=== PATIENT | female | born 1995 | race Caucasian/White ===

== ENCOUNTER 2019-10-22 13:05 | Emergency (ER) | payer BC, MEDICAID, SELFPAY ==
[2019-10-22 13:21] VITALS: BP 150/95; PULSE 108; RESP 18; TEMP 36.7; O2SAT 98
--- NOTE | 2019-10-22 13:22 | ED.EYEPROB ---
HPI - Eye Problem General Chief complaint: Eye Problems Stated complaint: Possible pink eye Time Seen by Provider: 10/22/19 13:22 Source: patient, family and RN notes reviewed History of Present Illness HPI Narrative: Patient is a 24-year-old female that presents the urgent care with her parents with complaints of possible right pinkeye. Mother states that for the last 2 days it has been increasingly red with yellow thick drainage. Mother states that she believes this worsened over the last 24 hours. Denies of any other acute complaints. No acute distress noted. Parents aware of the plan of care. Related Data Allergies Allergy/AdvReac Type Severity Reaction Status Date / Time Penicillins Allergy Mild Hives Verified 10/22/19 13:29 Review of Systems Review of Systems: Narrative: ROS completed with the parents. Difficult to report due to patient's mental capacity CONSTITUTIONAL: Denies fever, chills, or sweats. EYES: Reports of redness and discharge from the right eye ENT: Denies rhinorrhea, congestion, sore throat, or otalgia. CARDIOVASCULAR: Denies chest pain, palpitations, or edema. RESPIRATORY: Denies cough or dyspnea. GASTROINTESTINAL: Denies abdominal pain, nausea, vomiting, or diarrhea. GENITOURINARY: Denies dysuria or hematuria. SKIN: Denies rash or itching. MUSCULOSKELETAL: Denies back pain, joint pain, or myalgia. All other systems reviewed are negative, except as documented in HPI. PMFSH Comments At the time of my signature, I reviewed and agree with the nursing past medical, surgical, social, and family history. There is no relevant family history pertinent to the patient complaint. Exam Narrative: Exam Narrative: GENERAL: This is a well-nourished, in no apparent distress. HEAD: normocephalic, atraumatic. EYES: PERRL. Sclera clear/white. Moderate injection to right conjunctivea with thick yellow drainage. vision is grossly intact. EARS: External ears normal NOSE: External nose normal with no obvious nasal discharge THROAT: Mucous membranes moist NECK: Neck supple CARDIOVASCULAR: Regular rate and rhythm without murmurs, gallops, or rubs. RESPIRATORY: Clear to auscultation. Breath sounds equal bilaterally. No wheezes, rales, or rhonchi. SKIN: warm, intact with no suspicious lesions or rash, good texture and turgor. NEURO: awake, alert, and oriented to person, place and time. There were no obvious focal neurologic abnormalities. Course Vital Signs Vital signs: Vital Signs Temperature 98.1 F 10/22/19 13:21 Pulse Rate 108 H 10/22/19 13:21 Respiratory Rate 18 10/22/19 13:21 Blood Pressure 150/95 H 10/22/19 13:21 Pulse Oximetry 98 10/22/19 13:21 Temperature 98.1 F 10/22/19 13:21 Pulse Rate 108 H 10/22/19 13:21 Respiratory Rate 18 10/22/19 13:21 Blood Pressure 150/95 H 10/22/19 13:21 Pulse Oximetry 98 10/22/19 13:21 Reviewed-patient is informed that they may have pre-hypertension or hypertension based on a blood pressure reading in the department. I recommend the patient call the primary care provider listed on their discharge instructions or a physician of their choice this week to arrange follow-up for further evaluation of possible pre-hypertension or hypertension. MDM - Eye Problem MDM Narrative Medical decision making narrative: Advised the parents to use eyedrops to the right eye as directed. Clean the applicator after each use. May use warm compress if the eye is matting or for comfort purposes. Be sure to use warm wash rag with each application. May use Claritin or Benadryl as needed for itchiness/redness/irritation. Follow-up with PCP within 2 to 5 days or for worsening symptoms or failure to improve. Differential Diagnosis Differential diagnosis: Likely corneal abrasion, conjunctivitis, periorbital cellulitis and subconjunctival hemorrhage Critical Care Time Critical Care Time Critical Care Time: No Discharge Plan Discharge Clinical Impression: Bacterial conju
== END 2019-10-22 13:35 | disposition home or self-care (01) ==
PROVIDERS: Emergency Provider Nurse Practitioner Family; PCP Internal Medicine
DX: H10.9 Unspecified conjunctivitis (principal)
CPT/HCPCS: 99213; G0463